=== PATIENT | female | born 1980 | race Caucasian/White ===

== ENCOUNTER 2019-12-17 14:05 | Emergency (ER) | payer MEDICAID ==
[~2019-12-17] VITALS: Ht 165.1 cm; Wt 76.2 kg
[2019-12-17] MEDS ORDERED: FURO-152 PO (14:18)
--- NOTE | 2019-12-17 14:20 | NUR ---
Patient walked into ER c/o SOB for 1 week. Came in for worsening symptoms.
--- NOTE | 2019-12-17 14:24 | NUR ---
Dr Russo into eval patient.
[2019-12-17 14:44] LABS: BASOPHILS # (AUTO) 0.1 K/uL (0.0-8.0); BASOPHILS % (AUTO) 1.3 % (0.0-2.0); EOSINOPHILS # (AUTO) 0.2 K/uL (0.0-0.7); EOSINOPHILS % (AUTO) 2.5 % (0.0-7.0); HEMATOCRIT 39.1 % (31.2-41.9); HEMOGLOBIN 12.9 g/dL (10.9-14.3); LYMPHOCYTES # (AUTO) 1.8 K/uL (20.0-40.0); LYMPHOCYTES % (AUTO) 24.5 % (20.5-51.5); MEAN CORPUSCULAR HEMOGLOBIN 30.6 uug (24.7-32.8); MEAN CORPUSCULAR HGB CONC 33 g/dL (32.3-35.6); MEAN CORPUSCULAR VOLUME 92.5 fL (75.5-95.3); MONOCYTES % (AUTO) 13.4 % (0.0-11.0); NEUTROPHILS # (AUTO) 4.4 K/uL (1.8-8.9); NEUTROPHILS % (AUTO) 58.3 % (38.5-71.5); PLATELET COUNT (AUTO) 248 K/uL (179-408); RED BLOOD CELL COUNT(AUTO) 4.23 MIL/uL (3.63-4.92); WHITE BLOOD COUNT (AUTO) 7.5 K/uL (3.8-11.8)
[2019-12-17 14:52] LABS: CREATININE 0.9 mg/dL (0.6-1.3); POTASSIUM 4.4 mmol/L (3.5-5.1)
[2019-12-17 15:06] LABS: BILIRUBIN,DIRECT 0.2 mg/dL (0.0-0.2); BILIRUBIN,TOTAL 0.6 mg/dL (0.2-1.0); TOTAL PROTEIN, SERUM 6.1 g/dL (6.4-8.2)
[2019-12-17] MEDS ORDERED: FUROSEMIDE 20 MG/2 ML VIAL ONE (15:14)
[2019-12-17] MEDS ORDERED: FUROSEMIDE 20 MG/2 ML VIAL IV ONE (15:15)
[2019-12-17 15:20] LABS: *URINE HCG, QUAL NEGATIVE (NEGATIVE)
--- NOTE | 2019-12-17 15:39 | NUR ---
Patient discharged to home in stable condition. Written and verbal after care instructions given. Patient verbalizes understanding of instructions. Stressed follow up or return to ER for worsening s/s.
[2019-12-17 15:40] VITALS: BP 122/82
== END 2019-12-17 15:40 | disposition home or self-care (01) ==
LOC: ER 14:09
DX: I50.20 Unspecified systolic (congestive) heart failure (principal); I51.7 Cardiomegaly; Z79.899 Other long term (current) drug therapy; R94.31 Abnormal electrocardiogram [ECG] [EKG]
CPT/HCPCS: 36415; 71045; 80048; 80076; 83880; 84484; 84703; 85025; 93005; 96374; 99285; J1940; 70030-TC; A4663

== ENCOUNTER 2020-01-01 13:26 | Inpatient (IN) | payer MEDICAID ==
[~2020-01-01] VITALS: Ht 165.1 cm; Wt 81.7 kg
[~2020-01-01 13:26] MED LIST: FURO-152 PO
--- NOTE | 2020-01-01 13:38 | NUR ---
Dr. Basilio at bedside for MSE
[2020-01-01] MEDS ORDERED: PANTOPRAZOLE SODIUM 40 MG VIAL IV ONE (13:45)
[2020-01-01] MEDS ORDERED: ONDANSETRON 4 MG/2 ML VIAL IV ONE (13:45)
[2020-01-01] MEDS ORDERED: ONDANSETRON 4 MG/2 ML VIAL ONE (13:49)
[2020-01-01] MEDS ORDERED: PANTOPRAZOLE SODIUM 40 MG VIAL ONE (13:49)
[2020-01-01 14:10] LABS: BASOPHILS # (AUTO) 0.1 K/uL (0.0-8.0); BASOPHILS % (AUTO) 0.6 % (0.0-2.0); EOSINOPHILS # (AUTO) 0.1 K/uL (0.0-0.7); EOSINOPHILS % (AUTO) 1.2 % (0.0-7.0); HEMATOCRIT 41.8 % (31.2-41.9); HEMOGLOBIN 13.7 g/dL (10.9-14.3); LYMPHOCYTES # (AUTO) 2.2 K/uL (20.0-40.0); LYMPHOCYTES % (AUTO) 18.7 % (20.5-51.5); MEAN CORPUSCULAR HEMOGLOBIN 30.5 uug (24.7-32.8); MEAN CORPUSCULAR HGB CONC 33 g/dL (32.3-35.6); MEAN CORPUSCULAR VOLUME 92.9 fL (75.5-95.3); MONOCYTES # (AUTO) 1.1 K/uL (2.0-10.0); MONOCYTES % (AUTO) 9.4 % (0.0-11.0); NEUTROPHILS # (AUTO) 8.3 K/uL (1.8-8.9); NEUTROPHILS % (AUTO) 70.1 % (38.5-71.5); PLATELET COUNT (AUTO) 264 K/uL (179-408); WHITE BLOOD COUNT (AUTO) 11.8 K/uL (3.8-11.8)
[2020-01-01 14:14] LABS: CREATININE 1.1 mg/dL (0.6-1.3); POTASSIUM 4.1 mmol/L (3.5-5.1)
[2020-01-01 14:26] LABS: BILIRUBIN,DIRECT 0.1 mg/dL (0.0-0.2); BILIRUBIN,TOTAL 0.5 mg/dL (0.2-1.0); TOTAL PROTEIN, SERUM 6.8 g/dL (6.4-8.2)
--- NOTE | 2020-01-01 14:39 | NUR ---
Called [facility] for panel placement
--- NOTE | 2020-01-01 15:04 | NUR ---
repaged [facility] for panel placement
--- NOTE | 2020-01-01 15:07 | NUR ---
Speaking with Miguelangel Green
--- NOTE | 2020-01-01 15:09 | NUR ---
Pt. admitted to Tele , under care of Miguelangel Green Belongs List completed
--- NOTE | 2020-01-01 15:12 | NUR ---
Attempted to give report. RN not available
--- NOTE | 2020-01-01 15:25 | NUR ---
Miguelangel Green BEATER ROOM HELPER at bedside to evaluate patient
[2020-01-01] MEDS ORDERED: ONDANSETRON 4 MG/2 ML VIAL IV PRN (16:00)
[2020-01-01] MEDS ORDERED: MAGNESIUM HYDROXIDE 30 ML LIQUID UDC PO PRN (16:00)
[2020-01-01] MEDS ORDERED: Z GUARD REMEDY PASTE 57 GM TUBE TOP PRN (16:00)
[2020-01-01] MEDS ORDERED: FUROSEMIDE 20 MG TABLET PO SCH (16:00)
--- NOTE | 2020-01-01 16:42 | NUR ---
PATIENT PER REPORT IS FROM [facility], ADMITTED FOR CP, CHF, GASTRITIS AFTER C/O OF N/V, ABDOMINAL PAIN X1WEEK AND CHEST PAIN. PATIENT IS NEGATIVE FOR COVID PER ER RAPID TEST. AWAKE ALERT AND ORIENTED X3 . ROUTINE ADM ASSESSMENT INITIATED. [employer] TRIMMER KAVON DE LOS SANTOS NOTIFIED OF ADMISSION
[2020-01-01 16:55] VITALS: BP 110/79
[2020-01-01] MEDS: FUROSEMIDE 40 MG TABLET PO SCH (17:53)
[2020-01-01] MEDS: ENOXAPARIN SODIUM 40 MG/0.4 ML DISP.SYRIN SQ SCH (17:55)
[2020-01-01 18:51] LABS: *BILIRUBIN,URIN NEGATIVE (NEGATIVE); *BLOOD, URINE NEGATIVE (NEGATIVE); *CLARITY,URINE CLEAR (CLEAR); *COLOR,URINE YELLOW (YELLOW); *KETONES,URINE NEGATIVE (NEGATIVE); LEUKOCYTE ESTERASE ,URINE NEGATIVE (NEGATIVE); NITRITE, URINE POSITIVE (NEGATIVE); PH,URINE 6.5 (5.0-8.0); UGLUCOSE NEGATIVE (NEGATIVE)
--- NOTE | 2020-01-01 19:30 | NUR ---
RECEIVED PT AWAKE, ALERT AND ORIENTEDX4. PT IN NO ACUTE DISTRESS. IV INTACT. SAFETY AND COMFORT PROVCIDED. WILL CONTINUE TO MONITOR.
[2020-01-01 20:02] VITALS: BP 107/78
[2020-01-01 20:39] LABS: BACTERIA,URINE RARE /HPF (NONE SEEN); SQUAMOUS EPITHELIAL CELL,UR FEW /HPF (NONE SEEN)
[2020-01-02] VITALS: BP 115/64
--- NOTE | 2020-01-02 02:12 | NUR ---
BROTHER OF THE PT BROUGHT PATIENT THINGS IN THE LOBBY. STAFF CHECKED THE BELONGINGS AND ADD IT TO PT BELONGING LIST.
[2020-01-02 04:00] VITALS: BP 103/71
[2020-01-02 06:07] LABS: BASOPHILS # (AUTO) 0.1 K/uL (0.0-8.0); BASOPHILS % (AUTO) 0.9 % (0.0-2.0); EOSINOPHILS # (AUTO) 0.2 K/uL (0.0-0.7); EOSINOPHILS % (AUTO) 2.5 % (0.0-7.0); HEMATOCRIT 36.8 % (31.2-41.9); HEMOGLOBIN 12.7 g/dL (10.9-14.3); LYMPHOCYTES # (AUTO) 1.7 K/uL (20.0-40.0); LYMPHOCYTES % (AUTO) 19.3 % (20.5-51.5); MEAN CORPUSCULAR HGB CONC 35 g/dL (32.3-35.6); MEAN CORPUSCULAR VOLUME 92.4 fL (75.5-95.3); MONOCYTES # (AUTO) 0.9 K/uL (2.0-10.0); MONOCYTES % (AUTO) 10.8 % (0.0-11.0); NEUTROPHILS # (AUTO) 5.8 K/uL (1.8-8.9); NEUTROPHILS % (AUTO) 66.5 % (38.5-71.5); PLATELET COUNT (AUTO) 228 K/uL (179-408); RED BLOOD CELL COUNT(AUTO) 3.98 MIL/uL (3.63-4.92); WHITE BLOOD COUNT (AUTO) 8.8 K/uL (3.8-11.8)
--- NOTE | 2020-01-02 06:11 | NUR ---
PT SLEPT INTERMITTENTLY. PT IN NO ACUTE DISTRESS PRESCRIBED MEDICATION GIVEN AND PT TOLERATED IT WELL. SAFETY AND COMFORT PROVIDED. WILL ENDORSE TO INCOMING NURSE FOR CONTINUITY OF CARE.
[2020-01-02 06:18] LABS: CREATININE 1.1 mg/dL (0.6-1.3); MAGNESIUM 1.6 mg/dL (1.8-2.4); PHOSPHOROUS 3.4 mg/dL (2.5-4.9); POTASSIUM 3.8 mmol/L (3.5-5.1)
[2020-01-02 06:28] LABS: THYROID STIMULATING HORMONE 0.933 mIU/mL (0.358-3.740)
--- NOTE | 2020-01-02 07:27 | NUR ---
RESTING IN BED COMFORTABLY NO SS OF PAIN OR DISTRESS. NPO FOR US ABDOMEN. SR ON MONITOR
[2020-01-02 08:00] VITALS: BP 109/82
[2020-01-02] MEDS: MORPHINE SULFATE 2 MG/1 ML DISP.SYRIN IV PRN (08:02)
[2020-01-02] MEDS: FUROSEMIDE 40 MG TABLET PO SCH (08:02)
[2020-01-02] MEDS: PANTOPRAZOLE SODIUM 40 MG VIAL IV SCH (08:02)
[2020-01-02] MEDS ORDERED: FUROSEMIDE 20 MG TABLET PO SCH (09:00)
--- NOTE | 2020-01-02 09:24 | NUR ---
SEEN BY JESUS MANUEL DE OLS SANTOS NOTED LABS WITH ORDER TO REPLACE MAGNESIUM. SEE NOTES
[2020-01-02] MEDS: MAGNESIUM SULFATE/D5W 100 ML IV SCH ×2 (09:48→10:59)
--- NOTE | 2020-01-02 09:55 | NUR ---
seen by dr dueñas for cardiac consult see notes
[2020-01-02 10:56] LABS: BILIRUBIN,DIRECT 0.1 mg/dL (0.0-0.2); BILIRUBIN,TOTAL 0.6 mg/dL (0.2-1.0); TOTAL PROTEIN, SERUM 6.2 g/dL (6.4-8.2)
[2020-01-02] MEDS: SPIRONOLACTONE 25 MG TABLET PO SCH (11:01)
[2020-01-02] MEDS: LOSARTAN POTASSIUM 25 MG TABLET PO SCH (11:01)
[2020-01-02 11:18] VITALS: BP 109/77
[2020-01-02 15:33] VITALS: BP 106/78
[2020-01-02] MEDS: ENOXAPARIN SODIUM 40 MG/0.4 ML DISP.SYRIN SQ SCH (16:33)
--- NOTE | 2020-01-02 16:49 | NUR ---
[employer] Consultation 2:40pm: SW met with this patient, who was in her hospital bed, awake, alert, oriented x 4, receptive to meeting with this SW. Patient is a 39 year old female who came to the ED on 12/31 for chest pain. Patient states she has been living at the [facility] with her boyfriend ([address], [place] [address]) since August. Prior to being housed in a hotel, patient states she had been homeless for 2 years, living on the streets. Patient states that her hotel room will be available upon discharge, since her boyfriend is still living at the hotel. Patient has [employer] and receives GR as income. Patient maintained appropriate eye contact with this SW during the interview. Patient was cooperative. No SI, HI, delusions or hallucinations. SW discussed community resources with the patient, and patient expressed agreement with receiving the homeless resource packet. SW provided the homeless resource packet to the patient, which includes the following information: a list of year round shelters ([facility] [phone]; [facility] [phone]; [facility] [phone]), along with resources for places to go for food, showers, substance abuse treatment, mental health services, community medical clinics, and pharmacies. These include the following: the [facility] homeless directory which provides a list of places that individuals can go to throughout the week for hot meals, sack lunches, food pantries, and showers; a list of mental health clinics: [facility] [address] [place] [address], ; [facility] [address] [facility] [place] [address], ; [place] [place] [address], ; a list of medical clinics: [facility] [address], [place]. [place], ; [facility] [address], [address], [place] [address]; [facility] [address] [place] [address], ; and a list of substance abuse programs: [facility] Self-helpline ; [facility] ; [facility] ; [facility] ; [facility] ; [facility] [phone]; [facility] [phone]. MAXWELL also provided patient with information on locations of pharmacies. Patient thanked MAXWELL for her time and information provided. No further SS interventions needed at this time, however MAXWELL informed the patient that SW is available to further assist the patient, as needed. Patient expressed understanding. SW will continue to be available to the patient and will work with the interdisciplinary team, as needed, to ensure a safe discharge.
--- NOTE | 2020-01-02 19:30 | NUR ---
RECEIVED PT AWAKE, ALERT AND ORIENTEDX4. PT IN NO ACUTE DISTRESS. IV INTACT. SAFETY AND COMFORT PROVIDED.WILL CONTINUE TO MONITOR.
[2020-01-02] MEDS: FUROSEMIDE 40 MG/4 ML VIAL IV SCH (20:33)
[2020-01-02 20:44] VITALS: BP 115/68
[2020-01-03] VITALS: BP 110/78
[2020-01-03 04:41] VITALS: BP 109/76
[2020-01-03 06:08] LABS: BASOPHILS # (AUTO) 0.1 K/uL (0.0-8.0); BASOPHILS % (AUTO) 0.7 % (0.0-2.0); EOSINOPHILS # (AUTO) 0.1 K/uL (0.0-0.7); EOSINOPHILS % (AUTO) 1.5 % (0.0-7.0); HEMATOCRIT 39.8 % (31.2-41.9); HEMOGLOBIN 13.5 g/dL (10.9-14.3); LYMPHOCYTES # (AUTO) 1.3 K/uL (20.0-40.0); LYMPHOCYTES % (AUTO) 14.2 % (20.5-51.5); MEAN CORPUSCULAR HEMOGLOBIN 31.6 uug (24.7-32.8); MEAN CORPUSCULAR HGB CONC 34 g/dL (32.3-35.6); MONOCYTES # (AUTO) 0.9 K/uL (2.0-10.0); MONOCYTES % (AUTO) 9.6 % (0.0-11.0); NEUTROPHILS # (AUTO) 6.7 K/uL (1.8-8.9); PLATELET COUNT (AUTO) 246 K/uL (179-408); RED BLOOD CELL COUNT(AUTO) 4.28 MIL/uL (3.63-4.92); WHITE BLOOD COUNT (AUTO) 9.1 K/uL (3.8-11.8)
--- NOTE | 2020-01-03 06:15 | NUR ---
PT SLEPT INTERMITTENTLY. PT IN NO ACUTE DISTRESS. IV INTACT. PT ON NASAL CANNULA. PRESCRIBED MEDICATION GIVEN AND PT TOLERATED IT WELL.SAFETY AND COMFORT PROVIDED. ALL NEEDS ARE MET. WILL ENDORSE TO INCOMING NURSE FOR CONTINUITY OF CARE.
[2020-01-03 06:20] LABS: BILIRUBIN,DIRECT 0.2 mg/dL (0.0-0.2); BILIRUBIN,TOTAL 0.6 mg/dL (0.2-1.0); CREATININE 1.2 mg/dL (0.6-1.3); MAGNESIUM 1.9 mg/dL (1.8-2.4); POTASSIUM 4.4 mmol/L (3.5-5.1); TOTAL PROTEIN, SERUM 6.6 g/dL (6.4-8.2)
[2020-01-03] MEDS: MORPHINE SULFATE 2 MG/1 ML DISP.SYRIN IV PRN (06:35)
--- NOTE | 2020-01-03 06:36 | NUR ---
0635H MORHINE GIVEN TO PT FOR 8/10 PAIN SCALE. PT TOLERATED IT WELL. WILL CONTINUE TO MONITOR.
--- NOTE | 2020-01-03 08:00 | NUR ---
Receive patient laying in bed awake, alert and oriented. No signs of respiratory distress noted at this time, patient saturating well on room air. Patient is NPO pending MRCP procedure. IV patent and intact, 20 gauge on left forearm. Safety precautions in place, bed in the lowest position and locked with call light and personal belongings within reach. Will continue to monitor.
[2020-01-03] MEDS: SPIRONOLACTONE 25 MG TABLET PO SCH (08:37)
[2020-01-03] MEDS: FUROSEMIDE 40 MG/4 ML VIAL IV SCH (08:37)
[2020-01-03] MEDS: PANTOPRAZOLE SODIUM 40 MG VIAL IV SCH (08:37)
[2020-01-03 08:40] VITALS: BP 115/80
[2020-01-03] MEDS: LOSARTAN POTASSIUM 25 MG TABLET PO SCH (08:40)
[2020-01-03] MEDS ORDERED: METRONIDAZOLE 500 MG/NS 100ML 500 MG in PREMIXED 1 EACH IV SCH (09:30)
[2020-01-03] MEDS ORDERED: CEFTRIAXONE 1 G in IV DEXTROSE 5% 50 ML IV SCH (10:00)
--- NOTE | 2020-01-03 10:00 | NUR ---
Patient picked by ambulance to be taken to [facility] for a MRCP. Patient is stable at the time of transport. Vitals taken and were within normal limits.
--- NOTE | 2020-01-03 12:15 | NUR ---
Patient just returned from [facility], is in stable condition, will continue to monitor.
--- NOTE | 2020-01-03 15:10 | NUR ---
Patient made the decision to leave against medical advice. Asked her to stay and get her two initial antibiotics Flagyl and Ceftriaxone. Patient left with all her belongings and valuables. Advised patient not to leave but still insisted. Dr Rogers made aware.
== END 2020-01-03 15:05 | disposition left against medical advice (07) ==
LOC: ER 13:28 → TELE3 16:15
PROVIDERS: ADMIT Nurse Practitioner Acute Care; ATTEND Internal Medicine
DX: K81.9 Cholecystitis, unspecified (principal); I50.23 Acute on chronic systolic (congestive) heart failure; Z59.0 Homelessness; M06.9 Rheumatoid arthritis, unspecified; F12.90 Cannabis use, unspecified, uncomplicated; F17.210 Nicotine dependence, cigarettes, uncomplicated; I42.8 Other cardiomyopathies; Z95.810 Presence of automatic (implantable) cardiac defibrillator
CPT/HCPCS: 36415; 70030-TC; 71045; 74181; 76700; 83690; 83735; 84100; 84443; 85025; 85730; 87086; 93005; 93307; A4663; C9113; G0378; J0696; J1650; J1940; J2270; J2405; J3475; J3490; J7050; J7060